=== PATIENT | female | born 1990 | race Caucasian/White ===

== ENCOUNTER 2020-02-21 14:45 | Inpatient (IN) ==
[2020-02-21] MEDS ORDERED: MAALOX PLUS LIQUID PO PRN (16:24)
[2020-02-21] MEDS ORDERED: DULCOLAX PR PRN (16:24)
[2020-02-21] MEDS ORDERED: IMODIUM PO PRN ×2 (16:24)
[2020-02-21] MEDS ORDERED: SENOKOT PO PRN (16:24)
[2020-02-21] MEDS ORDERED: ZOFRAN IV PRN (16:24)
[2020-02-21] MEDS ORDERED: TYLENOL PO PRN (16:24)
[2020-02-21] MEDS ORDERED: D5W 1,000 ML IV PRN (16:24)
[2020-02-21] MEDS ORDERED: DESYREL PO PRN (16:24)
[2020-02-21] MEDS ORDERED: PHENOBARBITAL IV PRN (16:24)
[2020-02-21] MEDS ORDERED: TUBERSOL ID ONE (16:24)
[2020-02-21] MEDS ORDERED: ZOFRAN ODT PO PRN (16:24)
[2020-02-21] MEDS ORDERED: ZOFRAN IM PRN (16:24)
[2020-02-21] MEDS ORDERED: NICOTINE GUM BUCCAL PRN (16:24)
[2020-02-21 17:04] LABS: HEMATOCRIT 43.9 % (37.0-47.0); MCH 30.9 PG (27-31); MCHC 34.2 g/dL (33-37); MCV 90.3 FL (81-99); MPV 10.5 FL (7.4-10.4); RBC 4.86 XMIL (4.2-5.4); RDW 13.7 % (11.5-14.5); WBC 10.64 X1000 (4.8-10.8)
[2020-02-21 17:23] LABS: INR 0.86; PROTIME 12.1 Seconds (11.0-16.0)
[2020-02-21] MEDS ORDERED: LIBRIUM PO PRN (17:25)
[2020-02-21] MEDS ORDERED: BENTYL PO PRN (17:25)
[2020-02-21 17:45] LABS: AGAP 11; ALBUMIN 4.2 g/dL (3.5-5.0); ALKALINE PHOSPHATASE 91 U/L (32-104); AMYLASE 35 U/L (20-200); BUN 12 mg/dL (8-22); CALCIUM 8.9 mg/dL (8.8-10.2); CHLORIDE 98 mmol/L (98-107); COSMO 272; CREATININE 0.7 mg/dL (0.5-0.9); ESTIMATED GFR > 60; GLUCOSE 95 mg/dL (70-104); GOT 14 U/L (10-30); GPT 9 U/L (10-36); LIPASE 18 U/L (13-60); POTASSIUM 4.1 mmol/L (3.5-5.1); SODIUM 136 mmol/L (136-145); TCO2 27 mmol/L (25-35); TOTAL PROTEIN 7.3 g/dL (6.3-8.3)
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
[2020-02-21] MEDS: NICODERM PATCH TD PRN (18:27)
[2020-02-21 18:36] LABS: URINE SOURCE CLEAN CATCH
[2020-02-21 18:40] LABS: BILIRUBIN URINE NEGATIVE (NEGATIVE); BLOOD URINE MODERATE (NEGATIVE); COLOR YELLOW; GLUCOSE URINE NEGATIVE (NEGATIVE); KETONE URINE NEGATIVE (NEGATIVE); LEUKOCYTES URINE NEGATIVE (NEGATIVE); NITRITE URINE NEGATIVE (NEGATIVE); PH URINE 7.5; PROTEIN URINE 30 mg/dL (NEGATIVE); SP GRAVITY URINE 1.028; TURBIDITY URINE HAZY (CLEAR); UROBILINOGEN URINE 2 mg/dL (NORMAL)
[2020-02-21 18:41] LABS: UR EPITHELIAL CELLS >10 /HPF (<10); URINE BACTERIA 2+ /HPF; URINE RBC <10 /HPF (<10); URINE WBC <10 /HPF (<10)
[2020-02-21 18:49] LABS: UR AMPHETAMINES QUAL PRESUMPTIVE POSITIVE (NONE DETECT); UR BARBITUATES QUAL NONE DETECTED (NONE DETECT); UR BENZODIAZEPIN QUAL NONE DETECTED (NONE DETECT); UR CANNABINOIDS QUAL PRESUMPTIVE POSITIVE (NONE DETECT); UR COCAINE QUAL NONE DETECTED (NONE DETECT); UR METHADONE QUAL PRESUMPTIVE POSITIVE (NONE DETECT); UR METHAMPHETAMINE QUAL NONE DETECTED (NONE DETECT); UR OPIATES QUAL NONE DETECTED (NONE DETECT); UR OXYCODONE QUAL NONE DETECTED (NONE DETECT); UR PCP QUAL NONE DETECTED (NONE DETECT); UR PROPOXYPHENE QUAL NONE DETECTED (NONE DETECT); UR TCA QUAL NONE DETECTED (NONE DETECT)
[2020-02-21 19:00] LABS: URINE CASTS NONE SEEN; URINE CRYSTALS NONE SEEN; URINE SMALL ROUND CELLS NONE SEEN; URINE YEAST NONE SEEN
[2020-02-21] MEDS: SUBOXONE 2 MG/0.5 MG FILM SL SCH (19:36)
[2020-02-21] MEDS: SINEMET 25/100 PO PRN (19:37)
[2020-02-21] MEDS: ROBAXIN PO PRN (19:37)
[2020-02-21] MEDS: ATARAX PO PRN (20:23)
[2020-02-21] MEDS: MOTRIN PO PRN (20:23)
[2020-02-21] MEDS: SEROQUEL PO PRN (23:22)
[2020-02-22] MEDS: SUBOXONE 2 MG/0.5 MG FILM SL SCH ×2 (06:19→18:09)
[2020-02-22] MEDS: PROTONIX PO SCH (06:19)
[2020-02-22] MEDS: FOLIC ACID PO SCH (08:25)
[2020-02-22] MEDS: THERA M PLUS PO SCH (08:25)
[2020-02-22] MEDS: VITAMIN B-1 PO SCH (08:25)
[2020-02-22] MEDS: ATARAX PO PRN ×2 (09:41→20:41)
--- NOTE | 2020-02-22 10:16 | PROGRESS NOTE ---
DATE: 02/22/2020 SUBJECTIVE: Patient notes overall she is feeling a little bit better. Still having some muscle aches. Denies any fevers, chills. Denies cough, congestion. OBJECTIVE: Vital Signs: On physical examination, vital signs reviewed. General: She is awake, alert. No distress. HEENT: Normocephalic. Neck: Supple. Cardiovascular: Regular rate. Chest: Clear. Abdomen: Soft. Extremities: Moves all extremities. Neurologic: No focal changes. Skin: Warm, dry. No rashes. ASSESSMENT: 1. Nausea, vomiting. 2. Abdominal pain. 3. Myalgias. 4. Paresthesias. 5. Paroxysmal sweating. 6. Opiate abuse withdrawal and stabilization. PLAN: We will continue patient in the hospital. Continue Suboxone at 4 mg today twice daily, and if tolerates, can discharge home tomorrow. cc: Kenyon Cameron MD
[2020-02-22] MEDS: NICODERM PATCH TD PRN (17:21)
[2020-02-22] MEDS: ROBAXIN PO PRN (20:40)
[2020-02-22] MEDS: SEROQUEL PO PRN (20:41)
[2020-02-22] MEDS: SINEMET 25/100 PO PRN (20:41)
[2020-02-22] MEDS: MOTRIN PO PRN (20:41)
[2020-02-23] MEDS: SUBOXONE 2 MG/0.5 MG FILM SL SCH (06:19)
[2020-02-23] MEDS: PROTONIX PO SCH (06:19)
[2020-02-23] MEDS ORDERED: FLU VACCINE IM ONE (09:00)
[2020-02-23] MEDS ORDERED: PNEUMOVAX 23 IM ONE (09:00)
[2020-02-23] MEDS: VITAMIN B-1 PO SCH (09:26)
[2020-02-23] MEDS: FOLIC ACID PO SCH (09:26)
[2020-02-23] MEDS: THERA M PLUS PO SCH (09:26)
[2020-02-23 12:41] VITALS: BP 103/80
--- NOTE | 2020-02-27 22:28 | DISCHARGE SUMMARY ---
ADMISSION DATE: 02/21/2020 DISCHARGE DATE: 02/23/2020 DISCHARGE DIAGNOSES: 1. Nausea and vomiting. 2. Abdominal pain. 3. Myalgias. 4. Paresthesias. 5. Paroxysmal sweating. 6. Opiate abuse withdrawal and stabilization. CONSULTATIONS: None. PROCEDURES: None. BRIEF HOSPITAL COURSE: The patient is a 30-year-old female who presented to the hospital secondary to nausea, vomiting, and abdominal pain. Notes that she wants to get her life back under control. She has been trying to stop opiates, but has been unsuccessful. On discharge, she is awake, alert. She is tolerating Suboxone quite well. [*] DISPOSITION: The patient will be discharged on [*] twice daily. She will follow up outpatient with treatment facility of choice. Discussed that she needs outpatient life counseling as well as drug counseling. TIME SPENT: Greater than 30 minutes was spent in total care. cc: Kenyon Cameron MD
== END 2020-02-23 12:32 | disposition home or self-care (01) | DRG 897 ==
LOC: P.DIRADM 15:46 → P.MEDSURG 15:56
PROVIDERS: ADMIT Family Medicine; ATTEND Family Medicine